=== PATIENT | female | born 1950 | race African-American/Black ===

== ENCOUNTER 2016-11-09 13:25 | Day surgery (SDC) | payer OTHER ==
[2016-11-04 10:15] LABS: BASOPHILS 0.4 %; BASOPHILS ABSOLUTE 0.04 10/3/uL (0.0-0.16); EOSINOPHILS 1.7 %; EOSINOPHILS ABSOLUTE 0.16 10/3/uL (0.0-0.53); HEMOGLOBIN 12.6 g/dL (12.0-16.0); IMMATURE GRANULOCYTES 1.8 %; IMMATURE GRANULOCYTES ABSOLUTE 0.17 10/3/uL (0.0-0.11); LYMPHOCYTES 33.9 %; LYMPHOCYTES ABSOLUTE 3.19 10/3/uL (0.67-4.30); MEAN CORPUS HGB CONC 32.7 g/dL (32.0-36.0); MEAN CORPUSCULAR HEMOGLOB 31.6 pg (26.0-34.0); MEAN CORPUSCULAR VOLUME 96.5 fL (80-100); MEAN PLATELET VOLUME 8.9 fL (9.2-13.0); MONOCYTES 7.8 %; MONOCYTES ABSOLUTE 0.73 10/3/uL (0.21-1.20); NEUTROPHILS 54.4 %; NEUTROPHILS ABSOLUTE 5.11 10/3/uL (2.02-8.40); RED CELL COUNT 3.99 10/6/uL (4.0-5.6); WHITE BLOOD CELLS 9.4 10/3/uL (4.5-10.5)
[2016-11-04 10:17] LABS: HEMATOCRIT 38.5 % (36.0-48.0); MANUAL DIFF NO %; PLATELET COUNT 447 10/3/uL (150-400)
[2016-11-04 10:30] LABS: A/G RATIO 0.9 (0.7-1.9); ALBUMIN 3.3 G/DL (3.5-5.0); ALKALINE PHOSPHATASE 101 U/L (45-117); BUN (BLOOD UREA NITROGEN) 9 MG/DL (6-23); CALCIUM, SERUM 8.6 MG/DL (8.5-10.4); CHLORIDE, SERUM 113 MMOL/L (96-112); CO2 (CARBON DIOXIDE) 24 MMOL/L (24-34); CREATININE 0.72 MG/DL (0.55-1.02); GFR AFRICAN AMERICAN 103 ML/MIN (>=60); GFR NON AFRICAN AMERICAN 89 ML/MIN (>=60); GLOBULIN 3.5 G/DL (2.5-4.1); GLUCOSE, SERUM 102 MG/DL (60-99); POTASSIUM, SERUM 4.1 MMOL/L (3.5-5.3); SGOT(AST) 20 U/L (5-40); SGPT(ALT) 31 U/L (5-65); SODIUM, SERUM 145 MMOL/L (135-148); TOTAL BILIRUBIN 0.3 MG/DL (0-1.2); TOTAL PROTEIN 6.8 G/DL (6.0-8.5)
--- NOTE | ~2016-11-09 | OP ---
Record Of Operation [facility] [address] [place] 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 POSTOPERATIVE DIAGNOSIS: Right breast spindle cell tumor. OPERATION PERFORMED: Ultrasound-guided right lumpectomy. SURGEON: Gilberto Varghese M.D. ANESTHESIA: MAC plus local. ESTIMATED BLOOD LOSS: Less than 10 mL. IV FLUIDS: Adequate. INDICATIONS FOR PROCEDURE: Ms Wilson is a 66-year-old, who several months ago underwent a core needle biopsy, which showed a spindle cell tumor of the right breast. She has been recommended for lumpectomy. DESCRIPTION OF OPERATION: After appropriate sedation, the patient was prepped and draped in proper sterile fashion. Ultrasound probe was placed over the right breast. The lesion was visualized, it looked to be in the periareolar area which was what we had seen previously. I could not visualize a biopsy clip. A curvilinear incision was made directly underneath the ultrasound probe. We developed subcutaneous flaps widely underneath the nipple-areolar complex ,as well as superiorly in the [id number] right breast. This was taken down and the superior segment was removed and oriented with sutures for pathology. With ultrasound could not clearly see lesion, but did appear to be close to the medial margin. We then excised a new medial margin. A suture was placed on the new medial margin for orientation. Hemostasis was obtained. Deep tissues were approximated using 3-0 Vicryl suture. The skin was closed using interrupted 3-0 Vicryl sutures. Dressings were then placed. The patient was taken to the recovery room in satisfactory condition. SANDRA/NELSY Gilberto Varghese M.D. / [id number] CC: Gilberto Varghese M.D.
[~2016-11-09 13:25] MED LIST: ANOROELLIPTA INH; AUG875 PO; DORYX100 MG PO; MUCINEX600 MG PO; NEUR300 PO; NICODERM C14 MG/24 H TOP; PRED50B PO; PROZAC PO; SEROQUEL300 MG PO; TYLENOL PM PO
[2017-02-24] MEDS ORDERED: PRILO PO (14:21)
== END 2016-11-09 13:33 | disposition home or self-care (01) ==
LOC: SDC 13:25
PROVIDERS: Specialist
PROC: BH40ZZZ Ultrasonography of Right Breast (ICD-10-PCS; 2016-11-09)
PROC: 0HBT0ZZ Excision of Right Breast, Open Approach (ICD-10-PCS; principal; 2016-11-09 08:15)
DX: N60.11 Diffuse cystic mastopathy of right breast (principal); N60.41 Mammary duct ectasia of right breast; F17.210 Nicotine dependence, cigarettes, uncomplicated; J44.9 Chronic obstructive pulmonary disease, unspecified; J18.9 Pneumonia, unspecified organism; F41.9 Anxiety disorder, unspecified; F32.9 Major depressive disorder, single episode, unspecified; Z88.8 Allergy status to other drugs, medicaments and biological substances; Z79.899 Other long term (current) drug therapy
CPT/HCPCS: 80053; 85025; 88305; 88307; 93005; J0690; J1170; J2250; J2405; J3010